=== PATIENT | male | born 1975 | race Caucasian/White ===

== ENCOUNTER 2018-03-16 15:22 | Emergency (ER) | payer OTHER ==
[2018-03-16 16:13] LABS: ADD MAN DIFF? NO
[2018-03-16 16:15] LABS: WHITE BLOOD COUNT 6.6 10^3/ul (4.8-10.8)
[2018-03-16 16:15] LABS: BASOPHILS % 0.3 % (0.0-2.0); EOSINOPHILS # 0.1 10^3/ul (0.0-0.5); EOSINOPHILS % 2.1 % (0.0-7.0); HEMATOCRIT 46.4 % (42.0-52.0); HEMOGLOBIN 15.5 g/dl (14.0-18.0); LYMPHOCYTES # 2.1 10^3/ul (0.8-2.9); LYMPHOCYTES % 31.4 % (15.0-51.0); MEAN CORPUSCULAR HGB CONC 33.4 g/dl (32.0-37.0); MEAN CORPUSCULAR VOLUME 86.7 fl (82.0-101.0); MEAN PLATELET VOLUME 11.3 fl (7.4-10.4); MONOCYTE # 0.5 10^3/ul (0.3-0.9); MONOCYTES % 6.8 % (0.0-11.0); NEUTROPHIL # 3.9 10^3/ul (1.6-7.5); NEUTROPHILS % 59.2 % (39.0-77.0); PLATELET COUNT 201 10^3/UL (140-415); RED BLOOD COUNT 5.35 10^6/ul (4.70-6.10); RED CELL DISTRIBUTION WIDTH 13.1 % (11.5-14.5)
[2018-03-16] MEDS: HYDROCODONE/APAP (10/325) TAB PO (16:17)
[2018-03-16 16:34] LABS: ALANINE AMINOTRANSFERASE 51 IU/L (13-69); ALBUMIN 4.3 g/dl (3.3-4.9); ALBUMIN/GLOBULIN RATIO 1.16; ALKALINE PHOSPHATASE 89 IU/L (42-121); ANION GAP 13 (8-16); ASPARTATE AMINO TRANSFERASE 24 IU/L (15-46); BILIRUBIN,INDIRECT 0.7 mg/dl (0-1.1); BILIRUBIN,TOTAL 0.7 mg/dl (0.2-1.3); BLOOD UREA NITROGEN 13 mg/dl (7-20); C-REACTIVE PROTEIN 0.5 mg/dl (0.0-0.9); CALCIUM 9.3 mg/dl (8.4-10.2); CARBON DIOXIDE 26 mmol/L (21-31); CHLORIDE 112 mmol/L (97-110); CREATININE 1.01 mg/dl (0.61-1.24); GLUCOSE 114 mg/dl (70-220); POTASSIUM 4.2 mmol/L (3.5-5.1); SODIUM 147 mmol/L (135-144)
[2018-03-16 17:18] LABS: ERYTHROCYTE SEDIMENTATION RATE 12 mm/Hr (0-15)
== END 2018-03-16 18:41 | disposition home or self-care (01) ==
LOC: FTE 15:22
DX: M25.521 Pain in right elbow (principal); R20.0 Anesthesia of skin; R20.2 Paresthesia of skin
CPT/HCPCS: 36415; 72125; 73080-RT; 80053; 85025; 85651; 86140; 99285-25

== ENCOUNTER 2018-06-19 08:12 | Emergency (ER) | payer OTHER ==
[2018-06-19] MEDS: HYDROCODONE/APAP (5/325) TAB PO (08:45)
[2018-06-19] MEDS: COLCHICINE 0.6 MG TAB PO (08:55)
== END 2018-06-19 09:15 | disposition home or self-care (01) ==
LOC: FTE 08:12
DX: M10.9 Gout, unspecified (principal)
CPT/HCPCS: 99283; Z7502

== ENCOUNTER 2018-10-17 07:48 | Emergency (ER) | payer OTHER ==
[2018-10-17] MEDS: ONDANSETRON (ODT) 4 MG TAB ODT (08:36)
[2018-10-17] MEDS: METOCLOPRAMIDE 10 MG TAB PO (08:36)
== END 2018-10-17 08:50 | disposition home or self-care (01) ==
LOC: FTE 07:48
DX: J06.9 Acute upper respiratory infection, unspecified (principal)
CPT/HCPCS: 99283; Z7502

== ENCOUNTER 2018-11-15 12:55 | Emergency (ER) | payer OTHER ==
[2018-11-15] MEDS: KETOROLAC 30 MG INJ IM (15:32)
[2018-11-15] MEDS: DEXAMETHASONE 10 MG/ML 1 ML INJ IM (15:32)
[2018-11-15] MEDS: predniSONE 20 MG TAB PO (15:33)
[2018-11-15] MEDS: COLCHICINE 0.6 MG TAB PO (15:35)
== END 2018-11-15 16:03 | disposition home or self-care (01) ==
LOC: FTE 16:03
DX: M10.9 Gout, unspecified (principal)
CPT/HCPCS: 96372; 99284-25